=== PATIENT | female | born 1965 | race Caucasian/White ===

== ENCOUNTER 2018-08-19 07:30 | Inpatient (IN) | payer OTHER ==
[~2018-08-19] VITALS: Ht 167.6 cm; Wt 66.5 kg
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
[2018-09-23] VITALS (18 sets, daily range): BP systolic 105–133; BP diastolic 61–75; PULSE 57–80; RESP 11–24; Ht 167.6 cm; Wt 66.5 kg
[2018-09-23] MEDS ORDERED: CEFAZOLIN 2 GM/50 ML (PMX) 50 ML IVPB ONE (05:30)
[2018-09-23] MEDS: LACTATED RINGER'S 1,000 ML IV SCH ×4 (06:55→22:03)
--- NOTE | 2018-09-23 07:36 | PREAC ---
Date/Time of Note Date/Time of Note DATE: 09/23/18 TIME: 07:34 Anesthesia Eval and Record Evaluation Time Pre-Procedure Interview DATE: 09/23/18 TIME: 07:34 Age 53 Sex female NPO: 8 hrs Preoperative diagnosis Fibroids Planned procedure Vaginal Hysterectomy Past Medical History Past Medical History: Includes Pulm: Smoking Hx Musculoskeletal: Osteoarthritis GI: GERD Surgery & Anesthesia Issues No known issue Meds Anticoagulation: No Beta Meg within 24 hr: No Reason Beta Meg not given: Pt. not on B-Meg Discontinued Reported Medications [None] No Conflict Check 09/03/17 Current Medications Lactated Ringer's 1,000 ml @ 30 mls/hr Q24H IV Last administered on 09/23/18at 06:55; Admin Dose 30 MLS/HR; Start 09/23/18 at 06:30 Meds reviewed: Yes Allergies Coded Allergies: No Known Allergy (Unverified , 09/03/17) Allergies Reviewed: Yes Labs/Studies Labs Reviewed: Reviewed by anesthesiologist Blood Bank Test 09/23/18 06:14 09/23/18 06:25 Blood Product Summary Counts Blood Type O POSITIVE test: Negative Studies: ECG Pre-procedure Exam Last vitals Vital Signs Date Temp Pulse Resp B/P (MAP) Pulse Ox O2 O2 Flow FiO2 Time Delivery Rate 09/23/18 98.5 69 18 115/62 95 Room Air 06:45 (79) Airway: Adequate mouth opening, Adequate thyromental dist Mallampati: Mallampati II Teeth: Normal Lung: Normal Heart: Normal ASA Physical Status ASA physical status: 2 Emergency: None Planned Anesthetic General/MAC: ETT Neuraxial: Spinal Pre-operative Attestations Prior to commencing anesthesia and surgery, the patient was re-evaluated, there was verification of: *The patient's identity *The results of appropriate recent lab work and preoperative vital signs *The above evaluation not changing prior to induction *Anesthetic plan, risk benefits, alternative and complications discussed with patient/family; questions answered; patient/family understands, accepts and wishes to proceed. MELBA GARCIA Sep 23, 2018 07:36
--- NOTE | 2018-09-23 07:40 | HPN ---
Date/Time of Note Date/Time of Note DATE: 09/23/18 TIME: 07:39 Interval H&P Admission Note Pt. seen H&P reviewed: No system changes REBEKA MONIQUE MD Sep 23, 2018 07:40
[2018-09-23] MEDS ORDERED: morphine SULFATE/PF (10 MG/10 ML) INJ ONE (07:44)
[2018-09-23] MEDS ORDERED: MIDAZOLAM 1 MG/ML 2 ML INJ ONE (07:47)
[2018-09-23] MEDS ORDERED: ONDANSETRON 4 MG INJ IV PRN (08:00)
[2018-09-23] MEDS ORDERED: DIPHENHYDRAMINE 50 MG INJ IV PRN (08:00)
[2018-09-23] MEDS ORDERED: HYDROmorphONE 1 MG/5 ML IV SYRINGE IV PRN ×3 (08:00)
[2018-09-23] MEDS ORDERED: MEPERIDINE 25 MG INJ IV PRN (08:00)
[2018-09-23] MEDS ORDERED: METOCLOPRAMIDE 10 MG INJ IV PRN (08:00)
[2018-09-23] MEDS ORDERED: ALBUTEROL 0.083% (NEB) 2.5 MG/3 ML AMP HHN PRN (08:00)
[2018-09-23] MEDS ORDERED: FENTAnyl 50 MCG/ML VIAL IV PRN ×3 (08:00)
[2018-09-23] MEDS ORDERED: BUPIVACAINE 0.25%/EPI (SDV) 30 ML INJ INJ ONE (08:15)
[2018-09-23] MEDS ORDERED: BUPIVACAINE 0.25%/EPI (SDV) 30 ML INJ ONE (08:26)
[2018-09-23] MEDS ORDERED: CEFAZOLIN 1 GM INJ ONE (09:36)
[2018-09-23] MEDS ORDERED: SUCCINYLCHOLINE CHLORIDE 100 MG/5 ML SYG IV ONE (09:36)
[2018-09-23] MEDS ORDERED: SUGAMMADEX SODIUM 200 MG/2 ML VIAL IV ONE (09:36)
[2018-09-23] MEDS ORDERED: PROPOFOL 20 ML ONE (09:36)
[2018-09-23] MEDS ORDERED: LIDOCAINE 100 MG SYRINGE ONE (09:36)
[2018-09-23] MEDS ORDERED: ROCURONIUM 50 MG INJ ONE (09:36)
[2018-09-23] MEDS ORDERED: ZOLPIDEM 5 MG TAB PO PRN (10:00)
[2018-09-23] MEDS ORDERED: ONDANSETRON INJ 6 MG in DEXTROSE 5% 50 ML IVPB PRN (10:00)
[2018-09-23] MEDS ORDERED: DIPHENHYDRAMINE 50 MG CAP PO PRN (10:00)
[2018-09-23] MEDS ORDERED: HYDROCODONE/APAP (5/325) TAB PO PRN ×2 (10:00)
--- NOTE | 2018-09-23 10:04 | SIPON ---
Date/Time of Note Date/Time of Note DATE: 09/23/18 TIME: 10:01 Operative Report Preoperative Diagnosis Previous FRANCISCO JAVIER 3 of the cervix. Recurrent cervical dysplasia. 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
[2018-09-23] MEDS: KETOROLAC 30 MG INJ IV SCH ×2 (10:47→18:36)
[2018-09-23] MEDS: METOCLOPRAMIDE 10 MG TAB PO SCH ×2 (13:40→18:37)
--- NOTE | 2018-09-23 15:32 | OPR ---
DATE OF OPERATION: 09/23/2018 PROCEDURE: Vaginal total hysterectomy. PREOPERATIVE DIAGNOSES: Previous FRANCISCO JAVIER 3 of the cervix, recurrent cervical FRANCISCO JAVIER and fibroid uterus. POSTOPERATIVE DIAGNOSES: Previous FRANCISCO JAVIER 3 of the cervix, recurrent cervical FRANCISCO JAVIER and fibroid uterus. SURGEON: Rebeka Nixon MD ANESTHESIOLOGIST: Isaiah Pham MD with general anesthesia. SEGMENT BLOCK LAYER: technical planner. COMPLICATIONS: None. DESCRIPTION OF PROCEDURE: The patient was given general anesthesia and placed in the lithotomy position. The perineal and vaginal area were prepped and draped and a vaginal speculum was applied. The cervix was localized and held with a Vicente clamp and lidocaine and epinephrine was injected at the cervicovaginal junction. A circular incision was made around the cervicovaginal junction and the anterior cul-de-sac was found then the posterior cul-de-sac was found. The cardinal ligaments and uterosacral ligaments were burned and cut with the Voyant bipolar instrument and then the uterine vessels were treated the same way with the Voyant bipolar instrument with burning and then incision done. The uterus was inverted and the adnexal pedicle was clamped with the Jarad clamps to both ovarian ligament and tube in both sides and the uterus was removed. The adnexal stumps were tied to ipsilateral side with [id number] sutures with #1 Vicryl and retied with the same and the visualization of the area revealed that there was no adnexal bleeding. The vaginal cuff was treated posteriorly with interrupted sutures with #1 Vicryl for control of bleeding. The cardinal ligaments were ligated with a stitch and at this level at this time, a pursestring suture was brought through the peritoneum and the cavity was closed. The cardinal ligament stumps were tied to ipsilateral side and the stitch was brought to the posterior vaginal cuff and the vagina was now closed with interrupted sutures with 2-0 Vicryl and 0 Vicryl in vertical fashion and tying the cardinal ligaments together to the vaginal cuff and lifted the vaginal canal. The procedure was finished by removing all the instruments. There was no active bleeding. The Vaughan catheter was placed in and clear urine came out and a gauze was placed in the vagina for dressing and the patient tolerated the procedure well and left the OR awake and stable. Sponge counts and instrument counts were correct. Intravenous antibiotics were given for prophylaxis. Blood loss was minimal and the urine was clear at the end of the procedure. Dictated By: REBEKA VALERA/RUSSELL Conf#: [id number] DID#: [id number] MTDD
[2018-09-23] MEDS: CEFAZOLIN 1 GM/50 ML (PMX) 50 ML IVPB SCH ×2 (16:32→22:09)
[2018-09-24] MEDS: METOCLOPRAMIDE 10 MG TAB PO SCH ×4 (00:04→17:35)
[2018-09-24] MEDS: KETOROLAC 30 MG INJ IV SCH ×2 (00:05→06:14)
[2018-09-24 02:17] VITALS: BP 94/52; PULSE 60; RESP 18
[2018-09-24] MEDS: CEFAZOLIN 1 GM/50 ML (PMX) 50 ML IVPB SCH (06:14)
[2018-09-24] MEDS: LACTATED RINGER'S 1,000 ML IV SCH ×2 (06:30→09:40)
--- NOTE | 2018-09-24 07:35 | PAC ---
Date/Time of Note Date/Time of Note DATE: 09/24/18 TIME: 07:35 Post-Anesthesia Notes Post-Anesthesia Note Last documented vital signs Vital Signs Date Temp Pulse Resp B/P (MAP) Pulse Ox O2 O2 Flow FiO2 Time Delivery Rate 09/24/18 98.1 60 18 94/52 (66) 95 02:17 09/23/18 Room Air 15:13 09/23/18 2.0 10:57 Activity: WNL Respiratory function: WNL Cardiovascular function: WNL Mental status: Baseline Pain reasonably controlled: Yes Hydration appropriate: Yes Nausea/Vomiting absent: Yes MELBA GARCIA Sep 24, 2018 07:35
[2018-09-24 08:36] VITALS: BP 104/59; PULSE 57; RESP 20
--- NOTE | 2018-09-24 11:55 | PN ---
Date/Time of Note Date/Time of Note DATE: 09/24/18 TIME: 11:54 Assessment/Plan Lines/Catheters IV Catheter Type (from Nrs): Peripheral IV Vaughan in Place (from Nrs): Yes Subjective 24 Hr Interval Summary Day 1 post surgery Afebrile Feels good Ambulating Tolerating diet Not passing gases yet Encouraged ambulation Gauze Vaughan out this morning Exam/Review of Systems Vital Signs Vitals Vital Signs Date Temp Pulse Resp B/P (MAP) Pulse Ox O2 O2 Flow FiO2 Time Delivery Rate 09/24/18 98.4 57 20 104/59 97 08:36 (74) 09/23/18 Room Air 15:13 09/23/18 2.0 10:57 Intake and Output 09/23/18 09/23/18 09/24/18 1515:00 23:00 07:00 IntakeIntake Total 1120 ml 1290 ml 925 ml OutputOutput Total 70 ml 300 ml 350 ml BalanceBalance 1050 ml 990 ml 575 ml Results Result Diagram: 09/24/18 0453 09/24/18 0453 REBEKA MONIQUE MD Sep 24, 2018 11:55
[2018-09-24] MEDS: IBUPROFEN 800 MG TAB GTB SCH ×2 (13:35→21:35)
[2018-09-24 15:21] VITALS: BP 109/58; PULSE 68; RESP 18
--- NOTE | 2018-09-24 17:09 | RADRPT ---
Vent Rate: 66 bpm RR Interval: 916 msec NH Interval: 166 msec QRS Duration: 85 msec QT Interval: 428 msec QTC Interval: 447 msec P-R-T [place]: 51 - 52 - 59 degrees Sinus rhythm...normal P axis, V-rate 50- 99 Low voltage, precordial leads...precordial leads <1.0mV Electronically Signed By: Wallace Soriano
[2018-09-24 20:10] VITALS: BP 107/53; PULSE 68; RESP 18
[2018-09-25] MEDS: METOCLOPRAMIDE 10 MG TAB PO SCH ×3 (00:43→12:43)
[2018-09-25 02:09] VITALS: BP 116/57; PULSE 59; RESP 18
[2018-09-25] MEDS: IBUPROFEN 800 MG TAB GTB SCH ×2 (06:00→14:12)
[2018-09-25 07:17] VITALS: BP 127/74; PULSE 55; RESP 17
--- NOTE | 2018-09-25 13:48 | PD.PPDC ---
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
--- NOTE | 2018-09-25 13:54 | DS ---
Date/Time of Note Date/Time of Note DATE: 09/25/18 TIME: 13:50 Discharge Summary Admission/Discharge Info Admit Date/Time Sep 23, 2018 at 05:24 Discharge Date/Time September 25 2018 Discharge Diagnosis FRANCISCO JAVIER-3 of the cervix recurrent Patient Condition: Good Procedures Vaginal total hysterectomy Hx of Present Illness 40 years old female 3 para 2 patient was 89 years old female 0 para 0 who had been referred to me for abnormal Pap smears recurrent FRANCISCO JAVIER-3 patient was advised for a vaginal hysterectomy Hospital Course Patient did extremely well after surgery. She has been afebrile since She has been ambulatory she has been tolerating diet she has been voiding well and had a bowel movement today. Her pain has been controlled on Toradol. She has no issues and she would like to go home Her hemoglobin was lower than expected but she will be having high protein diet and vitamins. She is discharged home on ibuprofen and Tylenol 3 as needed She was given instructions of what to do and not to do at home and how to reach me in case of an emergency and she will see me in the office in 1 week she is stable and in good conditions and very happy to go home. Home Meds Discontinued Reported Medications [None] No Conflict Check 09/03/17 Follow-up Plan 1 week Primary Care Provider Care Physician No Primary Time spent on discharge: < 30 minutes REBEKA MONIQUE MD Sep 25, 2018 13:54
[2018-09-25 14:53] VITALS: BP 121/60; PULSE 65; RESP 18
== END 2018-09-25 15:56 | disposition home or self-care (01) | DRG 743 ==
LOC: REC 09-23 05:24 → 2NE 09-23 11:00
PROVIDERS: ADMIT Obstetrics & Gynecology; ATTEND Obstetrics & Gynecology
PROC: 0UTC7ZZ Resection of Cervix, Via Natural or Artificial Opening (ICD-10-PCS; 2018-09-23)
PROC: 0UT97ZZ Resection of Uterus, Via Natural or Artificial Opening (ICD-10-PCS; principal; 2018-09-23 07:30)
DX: N87.9 Dysplasia of cervix uteri, unspecified (principal); M81.0 Age-related osteoporosis without current pathological fracture; F17.200 Nicotine dependence, unspecified, uncomplicated; D25.9 Leiomyoma of uterus, unspecified
CPT/HCPCS: 80051; 82565; 84520; 85025; 86850; 86900; 86901; 86920; 87086; 88307; 93005; J0690; J1170; J1885; J2001; J2250; J2274; J2405; J3010; J7120